=== PATIENT | female | born 1970 | race Caucasian/White ===

== ENCOUNTER 2017-11-09 04:06 | Emergency (ER) | payer OTHER ==
[2017-11-09] MEDS ORDERED: Sodium Chloride 0.9% 100 ML ONE (05:32)
[2017-11-09 05:43] LABS: Anion Gap 15 mmol/L (10-20); BUN (Urea Nitrogen) 6 mg/dL (7.0-18.7); Calc. Creatinine Clearance 0 mL/min (70-130); Calcium 9.4 mg/dL (7.8-10.44); Carbon Dioxide 21 mmol/L (22-29); Chloride 100 mmol/L (98-107); Estimated GFR-MDRD 85; Glucose 293 mg/dL (70-105); Potassium 3.6 mmol/L (3.5-5.1); Sodium 132 mmol/L (136-145)
[2017-11-09 06:11] LABS: #Basophils 0.2 thou/uL (0.0-0.2); #Eosinphils 0.1 thou/uL (0.0-0.7); #Lymphocytes 2.6 thou/uL (1.20-3.40); #Monocytes 1.2 thou/uL (0.11-0.59); #Neutrophils 14.9 thou/uL (1.40-6.50); %Eosinophils 0.8 % (0.0-10.0); %Lymphocytes 13.9 % (21.0-51.0); %Monocytes 6.1 % (0.0-10.0); %Neutrophils 78.2 % (42.0-75.0); Hemoglobin 13.4 g/dL (12.0-16.0); Mean Corpuscular HGB CONC 34.8 g/dL (32.0-36.0); Mean Corpuscular Hemoglobin 29.7 pg (27.0-31.0); Mean Corpuscular Volume 85.5 fl (81.0-99.0); Mean Platelet Volume 9.8 fL (7.4-10.4); Platelet Count 229 thou/uL (130-400); RBC Distribution Width 12.7 % (11.5-14.5)
[2017-11-09] MEDS ORDERED: Fentanyl 100 MCG/2 ML VIAL ONE (06:35)
--- NOTE | 2017-11-09 21:09 | CT ---
PRELIMINARY REPORT/[facility]/EMERGENCY AFTER HOURS PROCEDURE: EXAM: CT Neck Without Intravenous Contrast CLINICAL HISTORY: 47 years old, female; Pain; Painful swallowing; Patient HX: Pt presents to the er for jaw pain and sw elling; Right maxillary tooth pain with right cheek swelling and difficulty swallowing. TECHNIQUE: Axial computed tomography images of the neck without intravenous contrast. All CT scans at this [facility] use one or more dose reduction techniques, viz.: automated exposure control; ma/kV adjustment per patient size (including targeted exams where dose is matched to indication; i.e. head); or iterative reconstruction technique. Coronal and sagittal reformatted images were created and reviewed. COMPARISON: No relevant prior studies available. FINDINGS: Nasopharynx: Unremarkable. Oropharynx: Unremarkable. No significant tonsillar enlargement. Hypopharynx: Unremarkable. Larynx: Unremarkable. Normal epiglottis. Trachea: Normal. Retropharyngeal space: Unremarkable. Submandibular/parotid glands: Unremarkable. Glands are normal in size. Thyroid: Unremarkable. Bones/joints: Unremarkable. No acute fracture. Soft tissues: Fat stranding and ill-defined thickening about the right maxilla with fat stranding ext ending into the surrounding soft tissues, thickening of the platysma, and subcutaneous stranding abou t the right side of the face extending posteriorly along the superficial aspect of the parotid gland. Mild thickening of the right masseter muscle. No organized fluid collection identified. Vasculature: Unremarkable. Lymph nodes: Multiple prominent subcentimeter cervical lymph nodes on the right. Dental: Multiple absent mandibular and maxillary crowns bilaterally. Minimal periapical lucency about the remaining right maxillary molar roots. Small periapical lucency about the remaining right maxill hossein first premolar root with lateral cortical defect. Lung apices: Stranding and bubbles of gas partially visualized in the left upper chest wall subcutane ous soft tissues. IMPRESSION: Carious changes with periapical lucency and lateral cortical defect about the remaining right first p remolar root. Inflammatory changes within the right perimaxillary soft tissues extending along the ri ght side of the face with mild thickening of the masseter muscle. No organized fluid collection ident ified. Thank you for allowing us to participate in the care of your patient. Dictated and Authenticated by: Gilbert Carranza MD 11/09/2017 6:41 AM Central Time ([place] & [place]) FINAL REPORT CT OF THE NECK SOFT TISSUES WITHOUT CONTRAST 11/09/17 A noncontrast scan was done for evaluation of right sided facial swelling. Axial slices were acquired , then coronal and sagittal reconstructions were done. There is considerable soft tissue swelling superficial to the maxilla on the right side and laterally . It extends over the patient's parotid gland and inferiorly a bit. The right parotid gland seems sli ghtly larger than the left. The right masseter muscle also is somewhat enlarged. I do not see any foc al abscess. There is considerable cervical adenopathy in the deep cervical chains on the right side, generally just under 1 cm in size. Regarding the mandible itself, there are a few teeth remaining in the molar regions. There is a little bit of periapical lucency in some of the remaining crowns of the posterior right molars, though they are not dramatic. There are no large lucencies in the mandible. The maxilla has at least one remaining tooth posteriorly on the right with some lucency around its ap ex, but again not a large amount. The visible paranasal sinuses are clear. Views of the superior mediastinum showed no fluid collections or other significant pathology. Incidental findings include loss of the normal cervical lordosis with extensive cervical spondylosis including disc space narrowing at C5-C6 and C6-C7. A line seen through the base of the dens on the sa gittal view appears to be artifactual as this area appears normal in all other respects. A disc osteo phyte complex is seen posteriorly at C5-C6 with some mild central canal stenosis at this level. IMPRESSION: Very prominent soft tissue swelling over the right maxillary region and over the right parotid gland with attendant thickening of the right masseter muscle and right parotid gland. While there are gerardo s in the teeth as noted, the periapical findings were present but not overly dramatic. Findings in agreement with preliminary reading by [facility]. POS: HOME
== END 2017-11-09 07:42 | disposition short-term general hospital (02) ==
LOC: BURERS 04:06
DX: M60.08 Infective myositis, other site (principal); L02.01 Cutaneous abscess of face; R73.9 Hyperglycemia, unspecified; K03.81 Cracked tooth; K02.9 Dental caries, unspecified; I10 Essential (primary) hypertension; G43.909 Migraine, unspecified, not intractable, without status migrainosus; J44.9 Chronic obstructive pulmonary disease, unspecified; F25.9 Schizoaffective disorder, unspecified; F41.9 Anxiety disorder, unspecified; F31.9 Bipolar disorder, unspecified; F17.210 Nicotine dependence, cigarettes, uncomplicated
CPT/HCPCS: 36415; 70490; 80048; 83605; 85025; 96360; 96361; 96365; 96375; J3010; J3490; J7050

== ENCOUNTER 2018-01-04 12:42 | Emergency (ER) | payer OTHER ==
[2018-01-04] MEDS ORDERED: Nitroglycerin 2% Ointment 1 INCH/1 GM Packet ONE (13:21)
[2018-01-04 13:23] LABS: #Basophils 0.1 thou/uL (0.0-0.2); #Eosinphils 0.3 thou/uL (0.0-0.7); #Lymphocytes 2.8 thou/uL (1.20-3.40); #Monocytes 0.8 thou/uL (0.11-0.59); #Neutrophils 8.9 thou/uL (1.40-6.50); %Basophils 0.6 % (0.0-1.0); %Lymphocytes 21.8 % (21.0-51.0); %Monocytes 6.2 % (0.0-10.0); %Neutrophils 69.4 % (42.0-75.0); Hemoglobin 13.2 g/dL (12.0-16.0); Mean Corpuscular HGB CONC 35.4 g/dL (32.0-36.0); Mean Corpuscular Hemoglobin 29.7 pg (27.0-31.0); Mean Corpuscular Volume 83.8 fl (81.0-99.0); Mean Platelet Volume 8.4 fL (7.4-10.4); Platelet Count 271 thou/uL (130-400); RBC Distribution Width 12.6 % (11.5-14.5); Red Blood Cell (RBC) Count 4.45 mill/uL (4.20-5.40); White Blood Cell (WBC) Count 12.8 thou/uL (4.8-10.8)
[2018-01-04 13:40] LABS: ALT (SGPT) 43 U/L (8-55); AST (SGOT) 26 U/L (5-34); Albumin 3.7 g/dL (3.5-5.0); Alkaline Phosphatase 98 U/L (40-150); Anion Gap 16 mmol/L (10-20); BUN (Urea Nitrogen) 14 mg/dL (7.0-18.7); Bilirubin, Total 0.4 mg/dL (0.2-1.2); Calc. Creatinine Clearance 0 mL/min (70-130); Calcium 9.4 mg/dL (7.8-10.44); Carbon Dioxide 23 mmol/L (22-29); Chloride 105 mmol/L (98-107); Estimated GFR-MDRD Greater than 90; Globulin 3.7 g/dL (2.4-3.5); Glucose 117 mg/dL (70-105); Potassium 3.9 mmol/L (3.5-5.1); Protein, Total 7.4 g/dL (6.0-8.3); Sodium 140 mmol/L (136-145)
[2018-01-04 13:42] LABS: CKMB 0.7 ng/mL (0-6.6); Troponin I Less than 0.010 ng/mL (< 0.028)
[2018-01-04] MEDS ORDERED: Lisinopril 20 MG TAB ONE (14:20)
[2018-01-04] MEDS ORDERED: Ketorolac Tromethamine 30 MG/ML VIAL ONE (14:20)
[2018-01-04] MEDS ORDERED: Azithromycin 250 MG TAB ONE (14:20)
--- NOTE | 2018-01-04 21:06 | RAD ---
PORTABLE CHEST: 01/04/18 An AP portable film at 1235 compared with a 11/09/17 study. The heart is normal in size and the lungs are clear. There is no sign of pneumonia, pleural effusions , or other acute changes. The mediastinum appears normal and the trachea is midline. IMPRESSION: No acute findings. POS: HOME
== END 2018-01-04 14:26 | disposition home or self-care (01) ==
LOC: BURERS 12:42
DX: J06.9 Acute upper respiratory infection, unspecified (principal); I10 Essential (primary) hypertension; R07.89 Other chest pain; E11.9 Type 2 diabetes mellitus without complications; G43.909 Migraine, unspecified, not intractable, without status migrainosus; J44.9 Chronic obstructive pulmonary disease, unspecified; D64.9 Anemia, unspecified; F41.9 Anxiety disorder, unspecified; F31.9 Bipolar disorder, unspecified; F17.200 Nicotine dependence, unspecified, uncomplicated; Z79.4 Long term (current) use of insulin; Z79.899 Other long term (current) drug therapy
CPT/HCPCS: 36415; 36416; 71045; 80053; 82553; 84484; 85025; 85379; 93005; 94760; 96374; J1885